=== PATIENT | female | born 1950 | race Caucasian/White ===

== ENCOUNTER 2021-03-11 06:21 | Day surgery (SDC) | payer MEDICARE, OTHER | END 2021-03-11 09:12 | disposition home or self-care (01) | LOC: ORSCSDS 06:21 | PROC: 0DJD8ZZ Inspection of Lower Intestinal Tract, Via Natural or Artificial Opening Endoscopic (ICD-10-PCS; principal; 2021-03-11) | DX: Z12.11 Encounter for screening for malignant neoplasm of colon (principal); Z86.010 Personal history of colon polyps; Z80.0 Family history of malignant neoplasm of digestive organs; K57.30 Diverticulosis of large intestine without perforation or abscess without bleeding; K63.89 Other specified diseases of intestine; F41.8 Other specified anxiety disorders; E78.00 Pure hypercholesterolemia, unspecified; I10 Essential (primary) hypertension; Z79.899 Other long term (current) drug therapy ==

== ENCOUNTER → 2021-11-30 | Outpatient (CLI) | payer MEDICARE, OTHER ==
[~2021-11-30] MED LIST: Budeprion Sr150 MG PO; Daily Multivit1 EAC2; ZOLP12.5 PO
== END | disposition home or self-care (01) ==
LOC: LAB SHORT 17:53
DX: R30.9 Painful micturition, unspecified (principal); Z87.440 Personal history of urinary (tract) infections
CPT/HCPCS: 87086

== ENCOUNTER 2022-11-18 07:07 | Day surgery (SDC) | payer MEDICARE, OTHER ==
[~2022-11-18] VITALS: Ht 165.1 cm; Wt 68.2 kg
[2022-11-18] MEDS ORDERED: Lovastatin20 MG (07:19)
--- NOTE | 2022-11-18 07:24 | NUR ---
11/18/22 0724 Snehal Barreto TETRACAINE TO RIGHT EYE AT 0719 PLEDGET TO RIGHT EYE AT 0721 BY [facility].G
== END 2022-11-18 09:20 | disposition home or self-care (01) ==
LOC: ORSCSDS 07:07
PROVIDERS: Ophthalmology
PROC: 08RJ3JZ Replacement of Right Lens with Synthetic Substitute, Percutaneous Approach (ICD-10-PCS; principal; 2022-11-18 08:30)
DX: H25.13 Age-related nuclear cataract, bilateral (principal); E78.5 Hyperlipidemia, unspecified; Z79.899 Other long term (current) drug therapy
CPT/HCPCS: J2001; J2250; J3010; J3301; J7040; V2632

== ENCOUNTER 2022-11-25 07:09 | Day surgery (SDC) | payer MEDICARE, OTHER ==
[~2022-11-25] VITALS: Ht 165.1 cm; Wt 67.4 kg
[~2022-11-25 07:09] MED LIST changes: +Lovastatin20 MG
--- NOTE | 2022-11-25 07:45 | NUR ---
11/25/22 0745 Mera Hood AT 0738 P[place]OET AT 0748
== END 2022-11-25 09:13 | disposition home or self-care (01) ==
LOC: ORSCSDS 07:09
PROVIDERS: Ophthalmology
PROC: 08DK3ZZ Extraction of Left Lens, Percutaneous Approach (ICD-10-PCS; principal; 2022-11-25 08:30)
DX: H25.12 Age-related nuclear cataract, left eye (principal); Z96.1 Presence of intraocular lens; E78.5 Hyperlipidemia, unspecified; K76.0 Fatty (change of) liver, not elsewhere classified; F41.9 Anxiety disorder, unspecified; F32.A Depression, unspecified; I10 Essential (primary) hypertension; Z79.899 Other long term (current) drug therapy
CPT/HCPCS: J2001; J2250; J3010; J3301; J7040; V2632